=== PATIENT | male | born 1945 | race Asian ===

== ENCOUNTER 2017-08-20 10:46 | Emergency (ER) | payer OTHER ==
[2017-08-20 10:53] VITALS: BP 144/88; PULSE 62; TEMP 97.8; BMI 21.6
[2017-08-20 11:39] LABS: BASOPHIL 0.6 % (0-2.0); EOSINOPHIL 1.8 % (0-4.5); MCH 29.7 pg (25.7-33.7); MCHC 33.4 g/dl (32.0-35.9); MEAN PLT VOLUME 8.5 fl (7.5-11.1); NEUTROPHILS 72.3 % (42.8-82.8); PLATELET COUNT 238 K/MM3 (134-434); RDW 13.6 % (11.9-15.9); WHITE BLOOD COUNT 9.7 K/mm3 (4.0-10.0)
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
[2017-08-20 12:05] LABS: URINE APPEARANCE CLEAR; URINE BILIRUBIN NEGATIVE (NEGATIVE); URINE BLOOD 1+ (NEGATIVE); URINE COLOR LTYELLOW; URINE GLUCOSE (UA) 1+ (NEGATIVE); URINE KETONE NEGATIVE (NEGATIVE); URINE NITRITE NEGATIVE (NEGATIVE); URINE PROTEIN NEGATIVE (NEGATIVE); URINE UROBILINOGEN NEGATIVE mg/dL (0.2-1.0)
[2017-08-20 12:08] LABS: ALBUMIN 4.5 g/dl (3.4-5.0); ANION GAP 7 (8-16); BILIRUBIN,TOTAL 0.6 mg/dL (0.2-1.0); CALCIUM 9.4 mg/dL (8.5-10.1); CO2 28 mmol/L (21-32); CREATININE 0.9 mg/dL (0.7-1.3); GLUCOSE,RANDOM 176 mg/dL (74-106); SGOT/AST 20 U/L (15-37); SGPT/ALT 28 U/L (12-78); TOT PROT 8.6 g/dl (6.4-8.2)
[2017-08-20 12:10] LABS: ALK PHOS 52 U/L (45-117); CPK 290 IU/L (39-308); TROPONIN I < 0.02 ng/ml (0.00-0.05)
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
[2017-08-20 12:33] LABS: INR 1.42 (0.82-1.09)
--- NOTE | 2017-08-20 12:54 | EKG ---
Test Reason : Blood Pressure : / mmHG Vent. Rate : 064 BPM Atrial Rate : 064 BPM P-R Int : 176 ms QRS Dur : 088 ms QT Int : 412 ms P-R-T Axes : 053 -12 010 degrees QTc Int : 425 ms SINUS RHYTHM WITH FREQUENT PREMATURE VENTRICULAR COMPLEXES IN A PATTERN OF BIGEMINY POSSIBLE LEFT ATRIAL ENLARGEMENT POOR R WAVE PROGRESSION ABNORMAL ECG WHEN COMPARED WITH ECG OF 27-DEC-2015 11:05, NO SIGNIFICANT CHANGE WAS FOUND CLINICAL CORRELATION IS RECOMMENDED Confirmed by MATT YEUNG, FAREED ([id number]) on 08/20/2017 12:54:15 PM Referred By: Confirmed By:FAREED GUTIERREZ MD
[2017-08-20 13:54] LABS: URINE MUCUS RARE; URINE RBC 1 /hpf (0-3); URINE WBC 3 /hpf (3-5)
[2017-08-20 18:15] LABS: URINE LEUK ESTERASE Negative (NEGATIVE)
== END 2017-08-20 17:22 | disposition home or self-care (01) ==
LOC: JER 10:46
DX: S06.0X0A Concussion without loss of consciousness, initial encounter (principal); S00.03XA Contusion of scalp, initial encounter; I10 Essential (primary) hypertension; E11.9 Type 2 diabetes mellitus without complications; Z79.84 Long term (current) use of oral hypoglycemic drugs; I48.91 Unspecified atrial fibrillation; Z79.82 Long term (current) use of aspirin; W03.XXXA Other fall on same level due to collision with another person, initial encounter; Y93.89 Activity, other specified; Y92.480 Sidewalk as the place of occurrence of the external cause
CPT/HCPCS: 36415; 70450-TC; 71020-TC; 80053; 81003; 81015; 82550; 82553; 84484; 85025; 85610; 85730; 93005; 93010; 99283-25

== ENCOUNTER 2018-03-11 11:37 | Observation (INO) | payer OTHER ==
[2018-03-11 12:31] LABS: BASO % 1.2 % (0-2.0); EOS % 3.3 % (0-4.5); HEMOGLOBIN 13.4 GM/dL (11.7-16.9); LYMPH % 29.5 % (8-40); MCH 30.7 pg (25.7-33.7); MCHC 34.4 g/dl (32.0-35.9); MEAN CELL VOLUME 89.3 fl (80-96); MEAN PLT VOLUME 8.6 fl (7.5-11.1); PLATELET COUNT 200 K/MM3 (134-434); RBC 4.37 M/mm3 (4.00-5.60); RDW 13.4 % (11.9-15.9); WHITE BLOOD COUNT 9.8 K/mm3 (4.0-10.0)
[2018-03-11 12:43] LABS: INR 1.51 (0.82-1.09); PROTHROMBIN TIME (PATIENT) 17.1 SEC (9.7-13.0)
[2018-03-11 12:45] LABS: ACTIVATED PTT 34.1 SECONDS (26.9-34.4)
--- NOTE | 2018-03-11 12:46 | PDOC ---
History of Present Illness <Alexia Narayanan - Last Filed: 03/11/18 16:41> - History of Present Illness Initial Comments: 03/11/18 13:40 The patient is a 73 year old male with past medical history of hypertension, diabetes, atrial fibrillation (on aspirin), bladder cancer (currently undergoing BCG therapy), prostatic hyperplasia, CAD, [place] s/p stents who presents to the ED with complaints of chest heaviness, shortness of breath, and lightheadedness since yesterday. He describes his chest pain as a heaviness in the middle of his chest and a heaviness in his head as well. He reports lightheadedness with change in position and shortness of breath at rest and worse with exertion. He denies any associated nausea, vomiting, diarrhea, diaphoresis, or focal neurological deficits. He reports his symptoms are different than from the time he had stent placement in that he is more SOB now. The patient reports he is taking all of his medications. He did not take baby aspirin this morning as he takes it in the evening. He denies any fevers or chills. <Noemy Gunter - Last Filed: 03/11/18 16:45> - General Chief Complaint: Shortness of Breath Stated Complaint: SOB Time Seen by Provider: 03/11/18 11:47 Past History <Alexia Narayanan - Last Filed: 03/11/18 16:41> - Past Medical History Cancer: Yes (BLADDER) Cardiac Disorders: Yes (cad, [place] X2) COPD: No Diabetes: Yes HTN: Yes Hypercholesterolemia: Yes - Surgical History Cardiac Surgery: No - Immunization History Immunization Up to Date: Yes - Suicide/Smoking/Psychosocial Hx Smoking History: Never smoked Have you smoked in the past 12 months: No Information on smoking cessation initiated: No Hx Alcohol Use: No Drug/Substance Use Hx: No Substance Use Type: None <Noemy Gunter - Last Filed: 03/11/18 16:45> - Past Medical History Allergies/Adverse Reactions: Allergies Allergy/AdvReac Type Severity Reaction Status Date / Time No Known Allergies Allergy Verified 03/11/18 11:38 Home Medications: Ambulatory Orders Aspirin [ASA -] 81 mg PO DAILY 06/13/15 Metoprolol Succinate [Toprol XL -] 50 mg PO DAILY #30 tab.sr.24h 06/18/15 Valsartan [Diovan] 320 mg PO DAILY #30 tablet 06/18/15 Isosorbide Mononitrate 30 mg PO DAILY 12/27/15 Alfuzosin HCl [Alfuzosin HCl ER] 10 mg PO DAILY 08/20/17 Amlodipine Besylate [Norvasc -] 2.5 mg PO DAILY 08/20/17 Metformin HCl [Glucophage] 500 mg PO DAILY 08/20/17 Tamsulosin HCl [Flomax] 0.4 mg PO DAILY 08/20/17 Review of Systems - Review of Systems Comments:: 03/11/18 13:40 GENERAL/CONSTITUTIONAL: No fever or chills. No weakness. HEAD, EYES, EARS, NOSE AND THROAT: No change in vision. No ear pain or discharge. No sore throat. GASTROINTESTINAL: No nausea, vomiting, diarrhea or constipation. GENITOURINARY: No dysuria, frequency, or change in urination. CARDIOVASCULAR:(+) chest pain and shortness of breath. RESPIRATORY: No cough, wheezing, or hemoptysis. MUSCULOSKELETAL: No joint or muscle swelling or pain. No neck or back pain. SKIN: No rash NEUROLOGIC: (+) lightheadedness, headache. No vertigo, loss of consciousness, or change in strength/sensation. ENDOCRINE: No increased thirst. No abnormal weight change. HEMATOLOGIC/LYMPHATIC: No anemia, easy bleeding, or history of blood clots. ALLERGIC/IMMUNOLOGIC: No hives or skin allergy <Noemy Gunter - Last Filed: 03/11/18 16:45> *Physical Exam - Vital Signs Last Vital Signs Temp Pulse Resp BP Pulse Ox 98.4 F 62 18 153/93 100 03/11/18 11:39 03/11/18 11:39 03/11/18 11:39 03/11/18 11:39 03/11/18 11:39 <Alexia Narayanan - Last Filed: 03/11/18 16:41> - Vital Signs Last Vital Signs Temp Pulse Resp BP Pulse Ox 98.4 F 62 18 153/93 100 03/11/18 11:39 03/11/18 11:39 03/11/18 11:39 03/11/18 11:39 03/11/18 11:39 - Physical Exam Comments: 03/11/18 13:16 GENERAL: Awake, alert, and fully oriented, in no acute distress HEAD: No signs of trauma EYES: PERRLA, EOMI, sclera anicteric, conjunctiva clear ENT: Auricles normal inspection, hearing grossly normal, nares patent, oropharynx clear without exudates. Moist mucosa NECK: Normal ROM, supple, no lymphadenopathy, JVD, or masses LUNGS: Breath sounds equal, clear to auscultation bilaterally. No wheezes, and no crackles HEART: mostly regular rate with frequent PVCs, normal S1 and S2, no murmurs, rubs or gallops ABDOMEN: Soft, nontender, normoactive bowel sounds. No guarding, no rebound. No masses EXTREMITIES: Normal range of motion, no edema. No clubbing or cyanosis. No cords, erythema, or tenderness NEUROLOGICAL: Normal speech, cranial nerves intact, negative pronator drift, 5/ 5 strength in all 4 extremities, normal sensation to light touch in all 4 extremities, normal cerebellar exam, normal gait, normal reflexes and tone SKIN: Warm, Dry, normal turgor, no rashes or lesions noted. <Noemy Gunter - Last Filed: 03/11/18 16:45> Heart Score/ECG Review - History History: Moderately suspicious - Electrocardiogram EKG: Non specific repolarization disturbance - Age Age: >/= 65 - Risk Factors Based on the list above the patient has:: 1-2 risk factors - Troponin Troponin: </= normal limit - Score Heart Score - Total: 5 - [place] Comment: 03/11/18 13:22 Sinus rhythm, rate 68. Frequent PVCs and bigeminy pattern. Normal axis. No ST elevations. When compared to EKG from July 2017 no significant change. <Noemy Gunter - Last Filed: 03/11/18 16:45> ED Treatment Course - LABORATORY CBC & Chemistry Diagram: 03/11/18 12:00 03/11/18 12:00 - ADDITIONAL ORDERS Additional order review: Laboratory Results 03/11/18 03/11/18 12:00 12:00 PT with INR 17.10 H INR 1.51 H PTT (Actin FS) 34.1 Sodium 136 Potassium 4.4 Chloride 103 Carbon Dioxide 24 Anion Gap 9 BUN 12 D Creatinine 0.8 Creat Clearance w eGFR > 60 Random Glucose 161 H Calcium 8.5 Magnesium 1.9 Total Bilirubin 0.4 D AST 20 ALT 28 Alkaline Phosphatase 47 Troponin I < 0.02 B-Natriuretic Peptide 198.16 H Total Protein 7.3 Albumin 3.8 03/11/18 12:00 RBC 4.37 MCV 89.3 MCHC 34.4 RDW 13.4 MPV 8.6 Neutrophils % 55.0 D Lymphocytes % 29.5 D Monocytes % 11.0 H Eosinophils % 3.3 D Basophils % 1.2 - RADIOLOGY Radiograph Interpretation: 03/11/18 13:28 Chest X-ray as reviewed by Dr. Corona reports no acute pathology. 03/11/18 15:[address] as reviewed by Dr. Cardozo reports no acute pathology, right parietal scalp hematoma. <Alexia Narayanan - Last Filed: 03/11/18 16:41> - LABORATORY CBC & Chemistry Diagram: 03/11/18 12:00 03/11/18 12:00 - ADDITIONAL ORDERS Additional order review: 03/11/18 12:00 RBC 4.37 MCV 89.3 MCHC 34.4 RDW 13.4 MPV 8.6 Neutrophils % 55.0 D Lymphocytes % 29.5 D Monocytes % 11.0 H Eosinophils % 3.3 D Basophils % 1.2 - RADIOLOGY Radiology Studies Ordered: Category Date Time Status CHEST X-RAY PORTABLE* [RAD] Stat Radiology 03/11/18 11:57 Completed <Noemy Gunter - Last Filed: 03/11/18 16:45> Medical Decision Making - Medical Decision Making 03/11/18 15:25 Phone call placed to CT techs in order to facilitate patient's CT. 03/11/18 16:38 Microblog sent to [facility]. Call returned promptly and case discussed. <Alexia Narayanan - Last Filed: 03/11/18 16:41> - Medical Decision Making 03/11/18 13:25 73-year-old male with a history of coronary artery disease, bladder cancer on BCG immunetherapy presents to the ED with 24hrs of chest heaviness, SOB, headache, generalized weakness. Vitals wnl, exam wnl. EKG with sinus rhythm with bigeminy. DDx includes ACS vs PE vs MSK pain. Will obtain CTH given active malignancy and headache. Pt will need admission given high risk CP. 03/11/18 16:42 Labs, CTA, CTH neg Pt given ASA [address] Wallace who accepts pt to tele obs Case discussed in detail with admitting physician including history, physical exam and ancillary studies. Admitting physician has assumed care for the patient, will follow all pending diagnostics and will complete the evaluation and treatment. <Noemy Gunter - Last Filed: 03/11/18 16:45> *DC/Admit/Observation/Transfer - Attestations Scribe Attestion: 03/11/18 13:29 Documentation prepared by Alexia Narayanan, acting as medical records clerk for Noemy Gunter MD. <Alexia Narayanan - Last Filed: 03/11/18 16:41> - Discharge Dispostion Decision to Admit order: Yes - Attestations Physician Attestion: 03/11/18 16:45 I, Dr. Noemy Gunter MD, attest that this document has been prepared under my direction and personally reviewed by me in its entirety. I further attest, that it accurately reflects all work, treatment, procedures and medical decision -making performed by me. <Noemy Gunter - Last Filed: 03/11/18 16:45> Diagnosis at time of Disposition: Chest pain - Discharge Dispostion Condition at time of disposition: Stable - Referrals Referrals: Shakir Coyne MD [Primary Care Provider] -
[2018-03-11 13:06] LABS: ALBUMIN 3.8 g/dl (3.4-5.0); ANION GAP 9 (8-16); BILIRUBIN,TOTAL 0.4 mg/dL (0.2-1.0); BLOOD UREA NITROGEN 12 mg/dL (7-18); CALCIUM 8.5 mg/dL (8.5-10.1); CHLORIDE 103 mmol/L (98-107); CO2 24 mmol/L (21-32); CREATININE 0.8 mg/dL (0.7-1.3); GLUCOSE,RANDOM 161 mg/dL (74-106); MAGNESIUM 1.9 mg/dL (1.8-2.4); POTASSIUM 4.4 mmol/L (3.5-5.1); SGOT/AST 20 U/L (15-37); SGPT/ALT 28 U/L (12-78); SODIUM 136 mmol/L (136-145); TOT PROT 7.3 g/dl (6.4-8.2)
[2018-03-11 13:09] LABS: ALK PHOS 47 U/L (45-117); N-TERMINAL BNP 198.16 pg/ml (5-125)
[2018-03-11] MEDS ORDERED: ASPIRIN 325 MG TABLET PO ONE (16:35)
[2018-03-11] MEDS ORDERED: ASPIRIN 325 MG TABLET ONE (16:39)
--- NOTE | 2018-03-11 17:45 | PN ---
Teaching Attending Note Name of Resident: Simone Bonilla ATTENDING PHYSICIAN STATEMENT I saw and evaluated the patient. I reviewed the resident's note and discussed the case with the resident. I agree with the resident's findings and plan as documented with exceptions below. SUBJECTIVE: 73 yom with PMHx of CAD (?PCI), ?Afib, HTN, NIDDM, ?HLD, bladder ca undergoing BCG therapy currently was in his USOH till last night when had sudden onset of chest pressure with inability to breath lasting about 6 hours, resolved after receiving oxygen in the ED. Denies any prior similar symptoms. ADLs limited by exertional dyspnea, climbing or walking short distances. Currently asymptomatic in bed. Unclear h/o fall, reports was a year ago but per ED physician, he reported that had a headache then, which he currently denies. No ongoing hematuria. 12 point ROS done, neg otherwise. OBJECTIVE: Vital Signs Period Temp Pulse Resp BP Sys/Maharaj Pulse Ox Last 24 Hr 98.4 F 62 18 153/93 100 Intake & Output 03/08/18 03/09/18 03/10/18 03/11/18 23:59 23:59 23:59 23:59 Weight 130 lb GENERAL: Awake, alert, and fully oriented, in no acute distress. HEAD: Normal with no signs of trauma. EYES: Pupils equal, round and reactive to light, extraocular movements intact, sclera anicteric, conjunctiva clear. No lid lag. EARS, NOSE, THROAT: Ears normal, nares patent, oropharynx clear without exudates. Moist mucous membranes. NECK: soft, supple, no JVD LUNGS: Breath sounds equal, clear to auscultation bilaterally. No wheezes, and no crackles. No accessory muscle use. HEART: S1S2 regular ABDOMEN: Soft, nontender, not distended, normoactive bowel sounds, no guarding, no rebound, no masses. MUSCULOSKELETAL: Normal range of motion at all joints. No bony deformities or tenderness. No CVA tenderness. UPPER EXTREMITIES: 2+ pulses, warm, well-perfused. No cyanosis. No clubbing. No peripheral edema. LOWER EXTREMITIES: 2+ pulses, warm, well-perfused. No calf tenderness. No peripheral edema. NEUROLOGICAL: Cranial nerves II-XII grossly intact. Normal speech. PSYCHIATRIC: Cooperative. Good eye contact. Appropriate mood and affect. SKIN: Warm, dry, normal turgor, no rashes or lesions noted Home Medication List Medication Instructions Recorded Confirmed Type Aspirin [ASA -] 81 mg PO DAILY 06/13/15 08/20/17 History Isosorbide Mononitrate 30 mg PO DAILY 12/27/15 08/20/17 History Alfuzosin HCl [Alfuzosin HCl ER] 10 mg PO DAILY 08/20/17 08/20/17 History Amlodipine Besylate [Norvasc -] 2.5 mg PO DAILY 08/20/17 08/20/17 History Metformin HCl [Glucophage] 500 mg PO DAILY 08/20/17 08/20/17 History Tamsulosin HCl [Flomax] 0.4 mg PO DAILY 08/20/17 08/20/17 History Laboratory Results - last 24 hr 03/11/18 03/11/18 03/11/18 12:00 12:00 12:00 WBC 9.8 RBC 4.37 Hgb 13.4 Hct 39.0 MCV 89.3 MCH 30.7 MCHC 34.4 RDW 13.4 Plt Count 200 MPV 8.6 Neutrophils % 55.0 D Lymphocytes % 29.5 D Monocytes % 11.0 H Eosinophils % 3.3 D Basophils % 1.2 PT with INR 17.10 H INR 1.51 H PTT (Actin FS) 34.1 Sodium 136 Potassium 4.4 Chloride 103 Carbon Dioxide 24 Anion Gap 9 BUN 12 D Creatinine 0.8 Creat Clearance w eGFR > 60 Random Glucose 161 H Calcium 8.5 Magnesium 1.9 Total Bilirubin 0.4 D AST 20 ALT 28 Alkaline Phosphatase 47 Troponin I < 0.02 B-Natriuretic Peptide 198.16 H Total Protein 7.3 Albumin 3.8 EKG 1 Ventricular bigeminy. EKG 2 QS with T inversion in V1-V2 /septal infarct (present in V1, difficult to assess in prior V2 given superimpostion of PVC) CTA - neg for acute process CT brain - right scalp parietal hematoma ASSESSMENT AND PLAN: 73 yom with CAD, ?Afib, bladder Ca, NIDDM, HLD, admitted with chest pressure/ dyspnea. -Chest pressure/dyspnea, r/o ACS. CTA neg for PE -Right scalp parietal hematoma s/p ?Fall -HTN -NIDDM -?HLD -CAD s/p ?PCI -?Afib PLan: Admit to telemetry, cycle CE, ASA 81 mg daily. Continue Toprol, Check lipid panel. Check 2D Echo, cardiology consult. Cardiology consult with Dr. Farrell. Stress test per him Hold metformin. ISS, diabetic diet. Continue ARB. Flomax. DVTPPx with heparin with close monitoring Admit to obs, Plan discussed with patient in detail and all questions answered. Total time spent 55 min.
--- NOTE | 2018-03-11 18:27 | HP ---
CHIEF COMPLAINT: Chest Pressure PCP: [facility] Card[facility]: Bud HISTORY OF PRESENT ILLNESS: Pt is a 73 y/o M with PMH HTN, DM, ?AF (on ASA), Bladder CA (completed 1 yr BCG now q3mo), BPH, CAD, VT (pt states cath in with NO stents) who presents to ED with chest pressure and SOB for 6hr. Symptoms began in the middle of the night, but pt states they did not wake him from sleep as he wakes many times during the night typically. Pressure was simultaneously sub-sternal and affecting the head, nonradiating, and associated with SOB. Pt denies feeling anxious, n/v/d, sweating. He states he has had cardiac symptoms in the past and this sensation was clearly different. Pt is no longer having symptoms. Pt states he used to take a medicine for cholesterol but has not been taking it because he is afraid it will damage his liver. He states his last stress test was 2 years ago and was ok. He denies any blood in the urine or other bleeding. ER course was notable for: (1) HTN, INR 1.51, BNP 194, Trop neg x 1 (2) CXR negative, Chest CTA neg for PE, Head CT significant for R parietal superficial hematoma (3) full dose ASA. Recent Travel: denies PAST MEDICAL HISTORY: HTN, DM, ?AF (on ASA), Bladder CA (completed 1 yr BCG now q3mo), BPH, CAD, VT ( pt states cath in with NO stents) PAST SURGICAL HISTORY: denies Social History: Smoking: denies Alcohol: denies Drugs: denies Family History: CAD in old age Allergies No Known Allergies Allergy (Verified 03/11/18 11:38) HOME MEDICATIONS: Home Medications Medication Instructions Recorded Aspirin [ASA -] 81 mg PO DAILY 06/13/15 Metoprolol Succinate [Toprol XL -] 50 mg PO DAILY #30 tab.sr.24h 06/18/15 Valsartan [Diovan] 320 mg PO DAILY #30 tablet 06/18/15 Isosorbide Mononitrate 30 mg PO DAILY 12/27/15 Alfuzosin HCl [Alfuzosin HCl ER] 10 mg PO DAILY 08/20/17 Amlodipine Besylate [Norvasc -] 2.5 mg PO DAILY 08/20/17 Metformin HCl [Glucophage] 500 mg PO DAILY 08/20/17 Tamsulosin HCl [Flomax] 0.4 mg PO DAILY 08/20/17 REVIEW OF SYSTEMS CONSTITUTIONAL: Absent: fever, chills, diaphoresis, generalized weakness, malaise, loss of appetite, weight change HEENT: head pressure Absent: rhinorrhea, nasal congestion, throat pain, throat swelling, difficulty swallowing, mouth swelling, ear pain, eye pain, visual changes CARDIOVASCULAR: chest pressure Absent: , syncope, palpitations, irregular heart rate, lightheadedness, peripheral edema RESPIRATORY: shortness of breath Absent: cough, , dyspnea with exertion, orthopnea, wheezing, stridor, hemoptysis GASTROINTESTINAL: Absent: abdominal pain, abdominal distension, nausea, vomiting, diarrhea, constipation, melena, hematochezia GENITOURINARY: Absent: dysuria, frequency, urgency, hesitancy, hematuria, flank pain, genital pain MUSCULOSKELETAL: Absent: myalgia, arthralgia, joint swelling, back pain, neck pain SKIN: Absent: rash, itching, pallor HEMATOLOGIC/IMMUNOLOGIC: Absent: easy bleeding, easy bruising, lymphadenopathy, frequent infections ENDOCRINE: Absent: unexplained weight gain, unexplained weight loss, heat intolerance, cold intolerance NEUROLOGIC: Absent: headache, focal weakness or paresthesias, dizziness, unsteady gait, seizure, mental status changes, bladder or bowel incontinence PSYCHIATRIC: Absent: anxiety, depression, suicidal or homicidal ideation, hallucinations. PHYSICAL EXAMINATION Vital Signs - 24 hr 03/11/18 11:39 Temperature 98.4 F Pulse Rate 62 Respiratory 18 Rate Blood Pressure 153/93 O2 Sat by Pulse 100 Oximetry (%) GENERAL: Awake, alert, and fully oriented, in no acute distress. HEAD: Normal with no signs of trauma. EYES: extraocular movements intact, sclera anicteric, conjunctiva clear. No lid lag. EARS, NOSE, THROAT: nares patent, oropharynx clear without exudates. Moist mucous membranes. NECK: Normal range of motion, supple without lymphadenopathy, JVD, or masses. No bruits LUNGS: Breath sounds equal, clear to auscultation bilaterally. No wheezes, and no crackles. No accessory muscle use. HEART: Regular rate and rhythm, normal S1 and S2 without murmur, rub or gallop. No extrasystoles appreciated ABDOMEN: Soft, nontender, not distended, normoactive bowel sounds, no guarding, no rebound, no masses. No hepatomegaly or splenomegaly. MUSCULOSKELETAL: Normal range of motion at all joints. No bony deformities or tenderness. No CVA tenderness. UPPER EXTREMITIES: 2+ pulses, warm, well-perfused. No cyanosis. No clubbing. No peripheral edema. LOWER EXTREMITIES: 2+ pulses, warm, well-perfused. No calf tenderness. No peripheral edema. NEUROLOGICAL: Cranial nerves II-XII intact. Normal speech. PSYCHIATRIC: Cooperative. Good eye contact. Appropriate mood and affect. SKIN: Warm, dry, normal turgor, no rashes or lesions noted, normal capillary refill. Laboratory Results - last 24 hr 03/11/18 03/11/18 03/11/18 12:00 12:00 12:00 WBC 9.8 RBC 4.37 Hgb 13.4 Hct 39.0 MCV 89.3 MCH 30.7 MCHC 34.4 RDW 13.4 Plt Count 200 MPV 8.6 Neutrophils % 55.0 D Lymphocytes % 29.5 D Monocytes % 11.0 H Eosinophils % 3.3 D Basophils % 1.2 PT with INR 17.10 H INR 1.51 H PTT (Actin FS) 34.1 Sodium 136 Potassium 4.4 Chloride 103 Carbon Dioxide 24 Anion Gap 9 BUN 12 D Creatinine 0.8 Creat Clearance w eGFR > 60 Random Glucose 161 H Calcium 8.5 Magnesium 1.9 Total Bilirubin 0.4 D AST 20 ALT 28 Alkaline Phosphatase 47 Troponin I < 0.02 B-Natriuretic Peptide 198.16 H Total Protein 7.3 Albumin 3.8 ASSESSMENT/PLAN: This is a pleasant 73 y/o M with PMH significant for arrhythmia and CAD who presented to the ED with complaint of chest and head pressure with SOB. Pt is admitted to tele/obs for evaluation and treatment of possible ACS. #ACS workup -ASA in ED -EKG signifcant for Q waves in V1, V2 (old) and TWI in V1, V2 (? new) -repeat Trop -c/w home meds: ASA 81, toprol, valsartan, isosorbide, alfluzosin, norvasc, flomax -Metformin held in case pt will need CT with contrast #INR -isolated INR of 1.5 -unclear etiology #DM -A1C -BGM ACHS -Novolog ISS -hold Metformin #? Afib -History of ventricular bigemini -No recorded AFib on EKG in records here -Pt not on anticoagulation at home #Bladder CA -completed 1 year BCG -now receiving q 3 mo #BPH -c/w Flomax #FEN -not on fluids -lytes wnl. Will give Mg to keep above 2 -cardiac diet #PPx -Hep Sub Q #Dispo -Obs Tele for ACS r/o Note: Meds reconciled with the patient. Simone Bonilla MD PGY-1 IM Visit type - Emergency Visit Emergency Visit: Yes ED Registration Date: 03/11/18 Care time: The patient presented to the Emergency Department on the above date and was hospitalized for further evaluation of their emergent condition. - New Patient This patient is new to me today: Yes Date on this admission: 03/13/18 - Critical Care Critical Care patient: No Hospitalist Screening - Colonoscopy Questionnaire Colonoscopy Questionnaire: Colonoscopy Questionnaire - Patient: 50 - 75 years old and never had a screening colonoscopy: Yes History of colon or rectal polyps, or CA: No History of IBD, Crohn's disease or UC: No History of abdominal radiation therapy as a child: No - Relative: 1 with colon or rectal CA, or polyps at age 60 or younger: No Colon or rectal CA diagnosed at age 45 or younger: No Multiple relatives with colon or rectal CA: No - Outcome: Screening Result: Positive Screen
[2018-03-11] MEDS ORDERED: INSULIN SLIDING SCALE (NOVOLOG) 1 VIAL SQ SCH (22:00)
[2018-03-11] MEDS ORDERED: amLODIPine BESYLATE 5 MG TABLET (FP) PO ONE (22:11)
[2018-03-11] MEDS: INSULIN SLIDING SCALE (NOVOLOG) 1 VIAL SQ SCH (22:47)
[2018-03-11] MEDS: HEPARIN NA (PORCINE) 5,000 UNITS/ML 1ML VIAL SQ SCH (22:47)
[2018-03-12 00:24] VITALS: BMI 22.4
[2018-03-12] MEDS: HEPARIN NA (PORCINE) 5,000 UNITS/ML 1ML VIAL SQ SCH ×3 (06:18→21:42)
[2018-03-12] MEDS: INSULIN SLIDING SCALE (NOVOLOG) 1 VIAL SQ SCH ×4 (06:29→21:45)
[2018-03-12 07:39] LABS: EOS % 3.7 % (0-4.5); HEMATOCRIT 40.8 % (35.4-49); HEMOGLOBIN 14.3 GM/dL (11.7-16.9); LYMPH % 35.3 % (8-40); MCH 31.3 pg (25.7-33.7); MCHC 35.1 g/dl (32.0-35.9); MEAN CELL VOLUME 89.4 fl (80-96); MEAN PLT VOLUME 8.3 fl (7.5-11.1); MONO % 10.5 % (3.8-10.2); NEUT % 49.5 % (42.8-82.8); PLATELET COUNT 209 K/MM3 (134-434); RBC 4.56 M/mm3 (4.00-5.60); RDW 13.8 % (11.9-15.9); WHITE BLOOD COUNT 8.4 K/mm3 (4.0-10.0)
[2018-03-12 07:47] LABS: CHLORIDE 105 mmol/L (98-107); POTASSIUM 4.3 mmol/L (3.5-5.1); SODIUM 140 mmol/L (136-145)
[2018-03-12 07:59] LABS: INR 1.5 (0.82-1.09)
[2018-03-12 08:03] LABS: ALBUMIN 3.8 g/dl (3.4-5.0); ALK PHOS 50 U/L (45-117); ANION GAP 9 (8-16); BILIRUBIN,TOTAL 0.5 mg/dL (0.2-1.0); BLOOD UREA NITROGEN 14 mg/dL (7-18); CALCIUM 8.8 mg/dL (8.5-10.1); CHOLESTEROL 142 mg/dL (50-200); CO2 26 mmol/L (21-32); CREATININE 0.8 mg/dL (0.7-1.3); GLUCOSE,RANDOM 107 mg/dL (74-106); HDL CHOLESTEROL 36 mg/dL (40-60); MAGNESIUM 2.2 mg/dL (1.8-2.4); PHOSPHOROUS 3.5 mg/dL (2.5-4.9); SGOT/AST 21 U/L (15-37); SGPT/ALT 31 U/L (12-78); TOT PROT 7.2 g/dl (6.4-8.2); TRIGLYCERIDES 181 mg/dL (35-160)
[2018-03-12] MEDS: TAMSULOSIN HCL 0.4 MG CAP.ER.24H (FP) PO SCH (08:10)
--- NOTE | 2018-03-12 09:32 | CON.CARD ---
Consult Consult Specialty:: cardio - History of Present Illness Chief Complaint: cp, sob History of Present Illness: 73 male here with cp, sob. he sees me in office, though does not comply closely with testing and f/u due to medical insurance copay concerns. last seen 08/16. he has known PVCs/ventricular bigeminy which has been present on EKGs for quite some time, with no signs of angina and no decrement in LV function. he most recently declined repeat echo and stress test at last visit. at that time, he was taking metoprolol succinate 50 bid with continued ventric bigeminy on EKG so I incr'd dose to 50 TID and rec'd f/u in 2 months--he did not return. the day of admission, pt awoke around 3am with sob. noted mild heaviness center of chest "like something sitting there". sat up but sx's persisted. noted heaviness in head as well (not dizzy or presyncope). sx's persisted for several hours that day, eventually resolved ? after arrived in hospital. cp did not radiate. he is vague historian, ? minimizes sx's. states he never had this sx before, then says "never that noticeable". denies leg swelling. states he notes exertional fatigue and sob e.g. on stairs and this has worsened since first reported it to me 08/16. no syncope PMH: h/o ME and PCTA --? details HTN HPL DM severe L/S spine dz - Alcohol/Substance Use Hx Alcohol Use: No - Smoking History Smoking history: Never smoked Have you smoked in the past 12 months: No Home Medications - Allergies Allergies/Adverse Reactions: Allergies Allergy/AdvReac Type Severity Reaction Status Date / Time No Known Allergies Allergy Verified 03/11/18 11:38 - Home Medications Home Medications: Ambulatory Orders Aspirin [ASA -] 81 mg PO DAILY 06/13/15 Metoprolol Succinate [Toprol XL -] 50 mg PO DAILY #30 tab.sr.24h 06/18/15 Valsartan [Diovan] 320 mg PO DAILY #30 tablet 06/18/15 Isosorbide Mononitrate 30 mg PO DAILY 12/27/15 Alfuzosin HCl [Alfuzosin HCl ER] 10 mg PO DAILY 08/20/17 Amlodipine Besylate [Norvasc -] 2.5 mg PO DAILY 08/20/17 Metformin HCl [Glucophage] 500 mg PO DAILY 08/20/17 Tamsulosin HCl [Flomax] 0.4 mg PO DAILY 08/20/17 Family Disease History - Family Disease History Family History: Denies (no known cmp) Review of Systems - Review of Systems Constitutional: denies: Chills, Fever Eyes: denies: Eye Pain HENT: denies: Nasal Congestion Neck: denies: Stiffness Cardiovascular: denies: Palpitations Respiratory: denies: Cough, Orthopnea, Wheezing Gastrointestinal: denies: Diarrhea, Rectal Bleeding Genitourinary: denies: Burning, Hematuria Musculoskeletal: denies: Muscle Pain Integumentary: denies: Rash Neurological: denies: Numbness, Seizure, Syncope Endocrine: denies: Excessive Sweating Hematology/Lymphatic: denies: Excessive Bleeding Vital Signs: Vital Signs Temperature 98 F 03/12/18 06:00 Pulse Rate 62 03/12/18 06:00 Respiratory Rate 18 03/12/18 06:00 Blood Pressure 169/65 03/12/18 06:00 O2 Sat by Pulse Oximetry (%) 99 03/11/18 21:00 Constitutional: Yes: Well Nourished, No Distress Eyes: No: Sclera Icterus HENT: No: Nasal Congestion Neck: No: Decreased ROM Respiratory: Yes: CTA Bilaterally. No: Accessory Muscle Use, Rales, Wheezes Gastrointestinal: Yes: Normal Bowel Sounds. No: Distention, Hepatomegaly, Palpable Mass, Tenderness Cardiovascular: Yes: Regular Rate and Rhythm JVD: No Carotid Bruit: No PMI: Non-Displaced Heart Sounds: Yes: S1, S2. No: Gallop Murmur: No: Systolic Murmur, Diastolic Murmur Musculoskeletal: Yes: Other (No kyphosis) Extremities: No: Cool, Cyanosis Edema: No Peripheral Pulses: 2+ Left Carotid, 2+ Right Carotid, 2+ Left Doralis Pedis, 2+ Right Dorsalis Pedis Integumentary: No: Jaundice Neurological: Yes: Alert, Oriented (x3) Psychiatric: No: Agitated - Other Data Labs, Other Data: CBC, BMP 03/12/18 06:36 03/12/18 06:36 INR, PTT INR 1.50 (0.82-1.09) H 03/12/18 06:36 Troponin, BNP 03/11/18 03/11/18 03/12/18 12:00 18:15 00:05 Troponin I < 0.02 < 0.02 < 0.02 B-Natriuretic Peptide 198.16 H Troponin, BNP 03/11/18 03/11/18 03/12/18 12:00 18:15 00:05 Troponin I < 0.02 < 0.02 < 0.02 B-Natriuretic Peptide 198.16 H Laboratory Tests 03/11/18 03/11/18 03/12/18 12:00 18:15 00:05 WBC Hgb Plt Count INR Sodium Potassium Carbon Dioxide BUN Creatinine Magnesium AST ALT Troponin I < 0.02 < 0.02 < 0.02 Albumin Triglycerides Cholesterol Total LDL Cholesterol HDL Cholesterol 03/12/18 03/12/18 03/12/18 06:36 06:36 06:36 WBC 8.4 Hgb 14.3 Plt Count 209 INR 1.50 H Sodium 140 Potassium 4.3 Carbon Dioxide 26 BUN 14 Creatinine 0.8 Magnesium 2.2 AST 21 ALT 31 Troponin I Albumin 3.8 Triglycerides 181 H D Cholesterol 142 Total LDL Cholesterol 89 HDL Cholesterol 36 L Assessment/Plan CTA chest: no PE, no aorta aneurysm, clear lungs/pleura ECG: NSR; LVH; ? old AWMI; PVCs--no change vs prior MPI 2015 (pers): no STs. no ischemia. nl EF. Echo 2016: nl LV/EF. no RWMAs. nl RV. nl LA. valves WNL. Holter 2016: 28K PVCs, no VT tele: NSR, freq PVCs. no VT home meds: amlodipine 2.5, ASA 81, valsartan 160, fenofibrate 145, isosorbide mono 30, metopr 50 TID, metformin 500 bid, flomax cp, sob: -has had exertional fatigue/sob for many months, gradually progressive (no active back pain seems to be present to blame for this). -awoke with sob on DOA, with assctd chest heaviness that was mild. -BNP 198, exam without JVD or edema, CXR no congestion. -no ischemic ECG changes. trop neg x3 -chronic atypical cp sx with negative MPI in past -? transient CHF, ? unstable angina, ? stress/anxiety, ? [place] (not the typical habitus for this) -rec echo and nuclear stress test to r/o serious CV pathology. pt declines nuclear stress test due to bladder cancer which he attributes to prior radiation exposures since he never smoked. i advised him of the lower sensitivity (and lower negative predictive value) of stress echo and that he would have to be willing to accept a degree of uncertainty regarding the presence or absence of potentially life-threatening CAD if we do stress echo and he verbalized understanding and preference to pursue this testing modality. i also advised him that, since he cannot exercise, we will attempt dobutamine ( already received metoprolol 75mg dose this am--will hold further doses)--pt informed if he does not reach 85% of MPHR he will have to consider angiogram for definitive dx, which has radiation exposure assctd but less than MPI. -plan for echo and dobut stress echo tomorrow. -hold metopr, nitrates until after test completed (low dose amlodipine ok--not likely to be anti-ischemic at this dose) CAD: -h/o ME with PTCA then, no details available -no ischemia 2014 -he is intolerant to statins, decliend ezetimibe due to ins coverage. -has been on fenofibrate therapy long time, this has been continued -has been on ASA with episode of hematuria previously causing temporary discontinuation. pt was advised to resume ASA 08/16 per my d/w KATHIA Ignacio) -on BB at home, also for HTN and PVC suppression--dose incr'd to metopr succ 50 TID at last visit, but he has only taken it bid he says. -f/u stress tst HTN: -bp labile during past hospital stays and when in severe back pain -was well controlled (140s) at 08/16 o.v. -suboptimal BP here -change metopr to 75 BID for better chances at compliance -observe bp trend -will incr amlodipine if remains uncontrolled frequent PVCs, ventric bigeminy: -longstanding in this pt, refractory to metopr 50 BID--dose incr'd 08/16 ? if he complied -incr metopr 75 bid, as above -check echo for LVEF (if declining, he will need amio vs mexilitene vs PVC ablation) HPL: -as above, statin intolerant. -low HDL, hi TGs--cont home fibrate -labs stable here, LDL 80s. -will start ezetimibe, ? if generic cost will be affordable on his plan now DM2 -A1c 7.3% in 2017, pt was to see dr gaming for mgmt coagulopathy: -INR 1.5 here. LFTs (incl albumin) normal -? heme eval inpatient or outpatient--per hospitalist/PMD
[2018-03-12] MEDS: ISOSORBIDE MONONITRATE 30 MG TAB.SR.24H (FP) PO SCH (09:41)
[2018-03-12] MEDS: VALSARTAN 160 MG TABLET (UD) PO SCH (09:41)
[2018-03-12] MEDS: ASPIRIN 81 MG CHEWABLE TABLETS PO SCH (09:41)
[2018-03-12] MEDS: amLODIPine BESYLATE 2.5 MG TABLET (FP) PO SCH (09:41)
[2018-03-12] MEDS: EZETIMIBE 10 MG TABLET (FP) PO SCH (09:48)
[2018-03-12] MEDS ORDERED: VALSARTAN 160 MG TABLET (UD) PO SCH (10:00)
[2018-03-12] MEDS ORDERED: PATIENT'S OWN MEDICATION (NON-FORMULARY) (Alfuzosin Hcl [Alfuzosin Hcl Er] 10 MG) PO SCH (10:00)
--- NOTE | 2018-03-12 13:25 | EKG ---
Test Reason : Blood Pressure : / mmHG Vent. Rate : 054 BPM Atrial Rate : 054 BPM P-R Int : 174 ms QRS Dur : 092 ms QT Int : 402 ms P-R-T Axes : 041 -29 002 degrees QTc Int : 381 ms SINUS BRADYCARDIA WITH OCCASIONAL PREMATURE VENTRICULAR COMPLEXES POSSIBLE LEFT ATRIAL ENLARGEMENT LEFT VENTRICULAR HYPERTROPHY CANNOT RULE OUT SEPTAL INFARCT (CITED ON OR BEFORE 11-MAR-2018) ABNORMAL ECG WHEN COMPARED WITH ECG OF 20-AUG-2017 11:36, NO SIGNIFICANT CHANGE WAS FOUND Confirmed by CARLOS YEUNG, KEITH ([id number]) on 03/12/2018 1:25:39 PM Referred By: Confirmed By:KEITH GONZALEZ MD
--- NOTE | 2018-03-12 14:19 | PN ---
Teaching Attending Note Name of Resident: Yoni Wallace SUBJECTIVE: Patient seen and examined. no further chest pain or dyspnea. asymptomatic overnight. OBJECTIVE: Vital Signs Period Temp Pulse Resp BP Sys/Maharaj Pulse Ox Last 24 Hr 97.6 F-98.2 F 60-74 17-20 143-174/65-90 99-100 Intake & Output 03/09/18 03/10/18 03/11/18 03/12/18 23:59 23:59 23:59 23:59 Intake Total 10 370 Balance 10 370 Weight 135 lb General: lying in bed in no acute distress Chest: CTAB, no rales or wheezing Abdomen:soft, NT, ND Extremities: no edema Home Medication List Medication Instructions Recorded Confirmed Type Aspirin [ASA -] 81 mg PO DAILY 06/13/15 08/20/17 History Isosorbide Mononitrate 30 mg PO DAILY 12/27/15 08/20/17 History Alfuzosin HCl [Alfuzosin HCl ER] 10 mg PO DAILY 08/20/17 08/20/17 History Amlodipine Besylate [Norvasc -] 2.5 mg PO DAILY 08/20/17 08/20/17 History Metformin HCl [Glucophage] 500 mg PO DAILY 08/20/17 08/20/17 History Tamsulosin HCl [Flomax] 0.4 mg PO DAILY 08/20/17 08/20/17 History Active Medications Generic Name Dose Route Start Last Admin Trade Name Freq PRN Reason Stop Dose Admin Amlodipine Besylate 2.5 mg 03/12/18 10:00 03/12/18 09:41 Norvasc - PO 2.5 mg DAILY ELVIN Administration Aspirin 81 mg 03/12/18 10:00 03/12/18 09:41 Asa - PO 81 mg DAILY ELVIN Administration Ezetimibe 10 mg 03/12/18 10:03/12/18 09:48 Zetia - PO 10 mg DAILY ELVIN Administration Heparin Sodium (Porcine) 5,000 unit 03/11/18 22:00 03/12/18 06:18 Heparin - SQ 5,000 unit TID ELVIN Administration Insulin Aspart 1 vial 03/11/18 22:00 03/12/18 11:36 Novolog Vial Sliding Scale - SQ Not Given ACHS [facility] Protocol Isosorbide Mononitrate 30 mg 03/12/18 10:00 03/12/18 09:41 Imdur - PO 30 mg DAILY ELVIN Administration Metoprolol Succinate 75 mg 03/12/18 10:00 03/12/18 09:41 Toprol Xl - PO 75 mg BID ELVIN Administration Tamsulosin HCl 0.4 mg 03/12/18 08:30 03/12/18 08:10 Flomax - PO 0.4 mg DAILY@0830 ELVIN Administration Valsartan 320 mg 03/12/18 10:00 03/12/18 09:41 Diovan - PO 320 mg DAILY ELVIN Administration Laboratory Results - last 24 hr 03/11/18 03/11/18 03/12/18 18:15 22:28 00:05 WBC RBC Hgb Hct MCV MCH MCHC RDW Plt Count MPV Neutrophils % Lymphocytes % Monocytes % Eosinophils % Basophils % PT with INR INR Sodium Potassium Chloride Carbon Dioxide Anion Gap BUN Creatinine Creat Clearance w eGFR POC Glucometer 114 Random Glucose Hemoglobin A1c % Calcium Phosphorus Magnesium Total Bilirubin AST ALT Alkaline Phosphatase Creatine Kinase 128 109 Troponin I < 0.02 < 0.02 Total Protein Albumin Triglycerides Cholesterol Total LDL Cholesterol HDL Cholesterol 03/12/18 03/12/18 03/12/18 06:24 06:36 06:36 WBC 8.4 RBC 4.56 Hgb 14.3 Hct 40.8 MCV 89.4 MCH 31.3 MCHC 35.1 RDW 13.8 Plt Count 209 MPV 8.3 Neutrophils % 49.5 Lymphocytes % 35.3 Monocytes % 10.5 H Eosinophils % 3.7 Basophils % 1.0 PT with INR 17.00 H INR 1.50 H Sodium Potassium Chloride Carbon Dioxide Anion Gap BUN Creatinine Creat Clearance w eGFR POC Glucometer 113 Random Glucose Hemoglobin A1c % Calcium Phosphorus Magnesium Total Bilirubin AST ALT Alkaline Phosphatase Creatine Kinase Troponin I Total Protein Albumin Triglycerides Cholesterol Total LDL Cholesterol HDL Cholesterol 03/12/18 03/12/18 03/12/18 06:36 06:36 11:31 WBC RBC Hgb Hct MCV MCH MCHC RDW Plt Count MPV Neutrophils % Lymphocytes % Monocytes % Eosinophils % Basophils % PT with INR INR Sodium 140 Potassium 4.3 Chloride 105 Carbon Dioxide 26 Anion Gap 9 BUN 14 Creatinine 0.8 Creat Clearance w eGFR > 60 POC Glucometer 111 Random Glucose 107 H D Hemoglobin A1c % 7.0 H D Calcium 8.8 Phosphorus 3.5 Magnesium 2.2 Total Bilirubin 0.5 D AST 21 ALT 31 Alkaline Phosphatase 50 Creatine Kinase Troponin I Total Protein 7.2 Albumin 3.8 Triglycerides 181 H D Cholesterol 142 Total LDL Cholesterol 89 HDL Cholesterol 36 L ASSESSMENT AND PLAN: 73 yom with CAD, ?Afib, bladder Ca, NIDDM, HLD, admitted with chest pressure/ dyspnea. -Chest pressure/dyspnea, r/o ACS. CTA neg for PE -Right scalp parietal hematoma s/p ?Fall -HTN -NIDDM -Hypertriglyceridemia -CAD s/p ?PCI -?Afib PLan: ACS ruled out, no events on tele. ASA 81 mg daily. Cardiology input appreciated. For Echo/Stress echo tomorrow. HOld nitrates/Beta kirby for stress. Continue Toprol, Check lipid panel. Hold metformin. ISS, diabetic diet. Continue ARB. Flomax. DVTPPx with heparin with close monitoring Dispo planning in 24 hours pending cardiac work up. Plan discussed with patient in detail, all questions answered.
[2018-03-12] MEDS ORDERED: INSULIN (NOVOLOG) ASPART 100 UNITS/ML 10ML VIAL ONE (20:39)
--- NOTE | 2018-03-12 21:44 | EKG ---
Test Reason : Blood Pressure : / mmHG Vent. Rate : 068 BPM Atrial Rate : 068 BPM P-R Int : 172 ms QRS Dur : 088 ms QT Int : 388 ms P-R-T Axes : 058 -21 016 degrees QTc Int : 412 ms SINUS RHYTHM WITH FREQUENT PREMATURE VENTRICULAR COMPLEXES IN A PATTERN OF BIGEMINY POSSIBLE LEFT ATRIAL ENLARGEMENT SEPTAL INFARCT (CITED ON OR BEFORE 11-MAR-2018) ABNORMAL ECG WHEN COMPARED WITH ECG OF 20-AUG-2017 11:36, NO SIGNIFICANT CHANGE WAS FOUND Confirmed by CARLOS YEUNG, KEITH ([id number]) on 03/12/2018 9:44:34 PM Referred By: Confirmed By:KEITH GONZALEZ MD
[2018-03-13] MEDS: HEPARIN NA (PORCINE) 5,000 UNITS/ML 1ML VIAL SQ SCH ×3 (06:46→22:17)
[2018-03-13] MEDS: INSULIN SLIDING SCALE (NOVOLOG) 1 VIAL SQ SCH ×4 (06:48→22:16)
--- NOTE | 2018-03-13 08:36 | PN ---
Teaching Attending Note Name of Resident: Simone Bonilla ATTENDING PHYSICIAN STATEMENT I saw and evaluated the patient. I reviewed the resident's note and discussed the case with the resident. I agree with the resident's findings and plan as documented with exceptions below. SUBJECTIVE: Patient seen and examined. No chest pain or dyspnea. Asymptomatic overnight. OBJECTIVE: Vital Signs Period Temp Pulse Resp BP Sys/Maharaj Pulse Ox Last 24 Hr 97.6 F-98.2 F 59-65 16-20 120-151/48-82 96-99 Intake & Output 03/10/18 03/11/18 03/12/18 03/13/18 23:59 23:59 23:59 23:59 Intake Total 10 1230 0 Balance 10 1230 0 Weight 135 lb General: lying in bed in no acute distress Chest: CTAB, no rales or wheezing Extremities: no edema Home Medication List Medication Instructions Recorded Confirmed Type Aspirin [ASA -] 81 mg PO DAILY 06/13/15 08/20/17 History Isosorbide Mononitrate 30 mg PO DAILY 12/27/15 08/20/17 History Alfuzosin HCl [Alfuzosin HCl ER] 10 mg PO DAILY 08/20/17 08/20/17 History Amlodipine Besylate [Norvasc -] 2.5 mg PO DAILY 08/20/17 08/20/17 History Metformin HCl [Glucophage] 500 mg PO DAILY 08/20/17 08/20/17 History Tamsulosin HCl [Flomax] 0.4 mg PO DAILY 08/20/17 08/20/17 History Active Medications Generic Name Dose Route Start Last Admin Trade Name Freq PRN Reason Stop Dose Admin Amlodipine Besylate 2.5 mg 03/12/18 10:00 03/12/18 09:41 Norvasc - PO 2.5 mg DAILY ELVIN Administration Aspirin 81 mg 03/12/18 10:00 03/12/18 09:41 Asa - PO 81 mg DAILY ELVIN Administration Ezetimibe 10 mg 03/12/18 10:03/12/18 09:48 Zetia - PO 10 mg DAILY ELVIN Administration Heparin Sodium (Porcine) 5,000 unit 03/11/18 22:00 03/13/18 06:46 Heparin - SQ 5,000 unit TID ELVIN Administration Insulin Aspart 1 vial 03/11/18 22:00 03/13/18 06:48 Novolog Vial Sliding Scale - SQ Not Given ACHS [facility] Protocol Isosorbide Mononitrate 30 mg 03/12/18 10:00 03/12/18 09:41 Imdur - PO 30 mg DAILY ELVIN Administration Metoprolol Succinate 75 mg 03/12/18 10:00 03/12/18 09:41 Toprol Xl - PO 75 mg BID ELVIN Administration Tamsulosin HCl 0.4 mg 03/12/18 08:30 03/12/18 08:10 Flomax - PO 0.4 mg DAILY@0830 ELVIN Administration Valsartan 320 mg 03/12/18 10:00 03/12/18 09:41 Diovan - PO 320 mg DAILY ELVIN Administration Laboratory Results - last 24 hr 03/12/18 03/12/18 03/13/18 16:46 21:44 06:48 POC Glucometer 125 131 120 ASSESSMENT AND PLAN: 73 yom with CAD, ?Afib, bladder Ca, NIDDM, HLD, admitted with chest pressure/ dyspnea. -Chest pressure/dyspnea, r/o ACS. CTA neg for PE -Right scalp parietal hematoma s/p ?Fall -HTN -NIDDM -Hypertriglyceridemia -CAD s/p ?PCI -?Afib PLan: ACS ruled out, no events on tele. ASA 81 mg daily. Cardiology input appreciated. 2D echo noted, follow up stress echo (patient declines nuclear stress test). Hold nitrates/Beta kirby for stress. Continue Toprol, Lipid panel noted, ?intolerant to statins. Declined ezetimibe Hold metformin. ISS, diabetic diet. Continue ARB. Flomax. DVTPPx with heparin with close monitoring Dispo planning today pending stress echo, if no concerns. Plan discussed with patient in detail, all questions answered.
[2018-03-13] MEDS: amLODIPine BESYLATE 2.5 MG TABLET (FP) PO SCH (09:02)
[2018-03-13] MEDS: VALSARTAN 160 MG TABLET (UD) PO SCH (09:02)
[2018-03-13] MEDS: TAMSULOSIN HCL 0.4 MG CAP.ER.24H (FP) PO SCH (09:02)
--- NOTE | 2018-03-13 10:19 | PN ---
Progress Note, Physician Chief Complaint: sob, cp History of Present Illness: no more sob. denies nasal congestion on day of the PND episode. has had intermittent mild chest heaviness here (at rest)--states this exact sx has occurred off and on for many yrs, no change of late. denies relationship to mental stress/anxiety (or any of these sx's in fact) no palpit, syncope - Current Medication List Current Medications: Active Medications Amlodipine Besylate (Norvasc -) 2.5 mg PO DAILY [facility] Last Admin: 03/13/18 09:02 Dose: 2.5 mg Aspirin (Asa -) 81 mg PO DAILY [facility] Last Admin: 03/12/18 09:41 Dose: 81 mg Ezetimibe (Zetia -) 10 mg PO DAILY [facility] Last Admin: 03/12/18 09:48 Dose: 10 mg Heparin Sodium (Porcine) (Heparin -) 5,000 unit SQ TID [facility] Last Admin: 03/13/18 06:46 Dose: 5,000 unit Insulin Aspart (Novolog Vial Sliding Scale -) 1 vial SQ ACHS [facility] PRN Reason: Protocol Last Admin: 03/13/18 06:48 Dose: Not Given Isosorbide Mononitrate (Imdur -) 30 mg PO DAILY [facility] Last Admin: 03/12/18 09:41 Dose: 30 mg Metoprolol Succinate (Toprol Xl -) 75 mg PO BID [facility] Last Admin: 03/12/18 09:41 Dose: 75 mg Tamsulosin HCl (Flomax -) 0.4 mg PO DAILY@0830 [facility] Last Admin: 03/13/18 09:02 Dose: 0.4 mg Valsartan (Diovan -) 320 mg PO DAILY [facility] Last Admin: 03/13/18 09:02 Dose: 320 mg - Objective Vital Signs: Vital Signs Temperature 98.3 F 03/13/18 08:47 Pulse Rate 88 03/13/18 08:47 Respiratory Rate 18 03/13/18 09:00 Blood Pressure 161/75 03/13/18 08:47 O2 Sat by Pulse Oximetry (%) 96 03/13/18 09:00 Constitutional: Yes: Well Nourished, No Distress, Calm Cardiovascular: Yes: Regular Rate and Rhythm, S1, S2. No: Gallop, Murmur Respiratory: Yes: Regular, CTA Bilaterally. No: Accessory Muscle Use, Rales, Wheezes Extremities: No: Cold Edema: No Neurological: Yes: Alert, Oriented Psychiatric: No: Agitated Labs: CBC, BMP 03/12/18 06:36 03/12/18 06:36 INR, PTT INR 1.50 (0.82-1.09) H 03/12/18 06:36 Assessment/Plan CTA chest: no PE, no aorta aneurysm, clear lungs/pleura ECG: NSR; LVH; ? old AWMI; PVCs--no change vs prior MPI 2015 (pers): no STs. no ischemia. nl EF. Echo 2016: nl LV/EF. no RWMAs. nl RV. nl LA. valves WNL. Holter 2016: 28K PVCs, no VT tele: NSR, freq PVCs. no VT home meds: amlodipine 2.5, ASA 81, valsartan 160, fenofibrate 145, isosorbide mono 30, metopr 50 TID, metformin 500 bid, flomax cp, sob: -has had exertional fatigue/sob for many months, gradually progressive (no active back pain seems to be present to blame for this). -awoke with sob on DOA, with assctd chest heaviness that was mild. -BNP 198, exam without JVD or edema, CXR no congestion. -no ischemic ECG changes. trop neg x3 -chronic atypical cp sx with negative MPI in past--he states the present chest "heaviness" is same as chronic sx -? sob sec to transient CHF, ? unstable angina, ? stress/anxiety, ? WILMAR (not the typical habitus for this) -echo today -stress echo today (dobut)--pt declines nuclear sec to bladder cancer and radiation concerns (see prior note) -if failure to obtain close to target HR during stress test, pt will have to decide whether or not willing to have angiogram for definitive dx (ok to do as outpt, which he expresses would be his preference, given no hi risk clinical findings here) -hold metopr, nitrates until after test completed (low dose amlodipine ok--not likely to be anti-ischemic at this dose) CAD: -h/o [place] with PTCA then, no details available -no ischemia 2014 -he is intolerant to statins, decliend ezetimibe due to ins coverage. -has been on fenofibrate therapy long time, this has been continued -has been on ASA with episode of hematuria previously causing temporary discontinuation. pt was advised to resume ASA 08/16 per my d/w KATHIA (Miky Ignacio) -on BB at home, also for HTN and PVC suppression--dose incr'd to metopr succ 50 TID at last visit, but he has only taken it bid he says. -f/u stress tst HTN: -bp labile during past hospital stays and when in severe back pain -was well controlled (140s) at 08/16 o.v. 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 if he complied -incr metopr 75 bid, as above -check echo for LVEF (if declining, he will need amio vs mexilitene vs PVC ablation) HPL: -as above, statin intolerant. -low HDL, hi TGs--cont home fibrate -labs stable here, LDL 80s. -will start ezetimibe, ? if generic cost will be affordable on his plan now DM2 -A1c 7.3% in 2017, pt was to see dr gaming for mgmt coagulopathy: -INR 1.5 here. LFTs (incl albumin) normal -? heme eval inpatient or outpatient--per hospitalist/PMD should see me in 2-4 wks in office
[2018-03-13] MEDS ORDERED: DOBUTAMINE HCL 100,000 MCG in DEXTROSE 5%-WATER - 92 ML IVPB ONE (10:30)
--- NOTE | 2018-03-13 18:14 | PN ---
Physical Exam: SUBJECTIVE: Patient seen and examined at bedside. No acute events. Pt feels well. Refusing nuclear scans. Consents to echo stress. OBJECTIVE: Vital Signs Period Temp Pulse Resp BP Sys/Maharaj Pulse Ox Last 24 Hr 97.7 F-98.3 F 59-88 16-18 143-161/65-75 96-96 GENERAL: The patient is awake, alert, and fully oriented, in no acute distress. HEAD: Normal with no signs of trauma. EYES: sclera anicteric, conjunctiva clear. No ptosis. ENT: oropharynx clear without exudates, moist mucous membranes. NECK: Trachea midline, full range of motion, supple. LUNGS: Breath sounds equal, clear to auscultation bilaterally, no wheezes, no crackles, no accessory muscle use. HEART: Regular rate and rhythm, S1, S2 without murmur, rub or gallop. ABDOMEN: Soft, nontender, nondistended, normoactive bowel sounds, no guarding, no rebound, no hepatosplenomegaly, no masses. EXTREMITIES: 2+ pulses, warm, well-perfused, no edema. NEUROLOGICAL: Cranial nerves II through XII grossly intact. Normal speech, gait not observed. PSYCH: Normal mood, normal affect. SKIN: Warm, dry, normal turgor, no rashes or lesions noted Laboratory Results - last 24 hr 03/12/18 03/13/18 03/13/18 21:44 06:48 16:45 POC Glucometer 131 120 129 Active Medications Generic Name Dose Route Start Last Admin Trade Name Freq PRN Reason Stop Dose Admin Amlodipine Besylate 2.5 mg 03/12/18 10:00 03/13/18 09:02 Norvasc - PO 2.5 mg DAILY [facility] Administration Aspirin 81 mg 03/12/18 10:00 03/12/18 09:41 Asa - PO 81 mg DAILY [facility] Administration Ezetimibe 10 mg 03/12/18 10:00 03/12/18 09:48 Zetia - PO 10 mg DAILY [facility] Administration Heparin Sodium (Porcine) 5,000 unit 03/11/18 22:00 03/13/18 14:16 Heparin - SQ 5,000 unit TID [facility] Administration Insulin Aspart 1 vial 03/11/18 22:00 03/13/18 16:48 Novolog Vial Sliding Scale - SQ Not Given ACHS [facility] Protocol Isosorbide Mononitrate 30 mg 03/12/18 10:00 03/12/18 09:41 Imdur - PO 30 mg DAILY [facility] Administration Metoprolol Succinate 75 mg 03/12/18 10:00 03/12/18 09:41 Toprol Xl - PO 75 mg BID [facility] Administration Tamsulosin HCl 0.4 mg 03/12/18 08:30 03/13/18 09:02 Flomax - PO 0.4 mg DAILY@0830 [facility] Administration Valsartan 320 mg 03/12/18 10:00 03/13/18 09:02 Diovan - PO 320 mg DAILY [facility] Administration ASSESSMENT/PLAN: This is a pleasant 73 y/o M with PMH significant for arrhythmia and CAD who presented to the ED with complaint of chest and head pressure with SOB. Pt is admitted to tele/obs for evaluation and treatment of possible ACS. #ACS workup -ASA in ED -EKG signifcant for Q waves in V1, V2 (old) and TWI in V1, V2 (? new) -Trop neg x 2 -c/w home meds: ASA 81, toprol, valsartan, isosorbide, alfluzosin, norvasc, flomax -Metformin held in case pt will need CT with contrast -stress echo: hailey-septal dyskinesia. myocardial ischemia #INR -isolated INR of 1.5 -unclear etiology #DM -A1C -BGM ACHS -Novolog ISS -hold Metformin #? Afib -History of ventricular bigemini -No recorded AFib on EKG in records here -Pt not on anticoagulation at home #Bladder CA -completed 1 year BCG -now receiving q 3 mo #BPH -c/w Flomax #FEN -not on fluids -lytes wnl. Will give Mg to keep above 2 -cardiac diet #PPx -Hep Sub Q #Dispo -Obs Tele for ACS r/o Note: Meds reconciled with the patient. Simone Bonilla MD PGY-1 IM Visit type - Emergency Visit Emergency Visit: No - New Patient This patient is new to me today: No - Critical Care Critical Care patient: No - Discharge Referral Referred to [facility] Med P.C.: No
[2018-03-14] MEDS ORDERED: amLODIPine BESYLATE 2.5 MG TABLET (FP) PO ONE (02:53)
[2018-03-14] MEDS: HEPARIN NA (PORCINE) 5,000 UNITS/ML 1ML VIAL SQ SCH (05:57)
[2018-03-14] MEDS: INSULIN SLIDING SCALE (NOVOLOG) 1 VIAL SQ SCH ×2 (06:01→12:01)
[2018-03-14 08:07] LABS: BASO % 1.1 % (0-2.0); HEMATOCRIT 43.6 % (35.4-49); HEMOGLOBIN 14.8 GM/dL (11.7-16.9); MCH 30.5 pg (25.7-33.7); MEAN CELL VOLUME 89.5 fl (80-96); MONO % 10.6 % (3.8-10.2); NEUT % 51.3 % (42.8-82.8); PLATELET COUNT 233 K/MM3 (134-434); RBC 4.87 M/mm3 (4.00-5.60); RDW 13.5 % (11.9-15.9); WHITE BLOOD COUNT 8.8 K/mm3 (4.0-10.0)
[2018-03-14 08:33] LABS: ALK PHOS 61 U/L (45-117); ANION GAP 8 (8-16); BILIRUBIN,TOTAL 0.5 mg/dL (0.2-1.0); BLOOD UREA NITROGEN 14 mg/dL (7-18); CALCIUM 8.6 mg/dL (8.5-10.1); CHLORIDE 104 mmol/L (98-107); CO2 26 mmol/L (21-32); CREATININE 0.7 mg/dL (0.7-1.3); GLUCOSE,RANDOM 147 mg/dL (74-106); POTASSIUM 4.1 mmol/L (3.5-5.1); SGOT/AST 36 U/L (15-37); SGPT/ALT 49 U/L (12-78); SODIUM 138 mmol/L (136-145); TOT PROT 7.9 g/dl (6.4-8.2)
[2018-03-14] MEDS: ISOSORBIDE MONONITRATE 30 MG TAB.SR.24H (FP) PO SCH (09:03)
[2018-03-14] MEDS: TAMSULOSIN HCL 0.4 MG CAP.ER.24H (FP) PO SCH (09:03)
[2018-03-14] MEDS: VALSARTAN 160 MG TABLET (UD) PO SCH (09:03)
[2018-03-14] MEDS: EZETIMIBE 10 MG TABLET (FP) PO SCH (09:03)
[2018-03-14] MEDS: ASPIRIN 81 MG CHEWABLE TABLETS PO SCH (09:03)
[2018-03-14] MEDS: amLODIPine BESYLATE 2.5 MG TABLET (FP) PO SCH (09:04)
--- NOTE | 2018-03-14 10:31 | PN ---
Progress Note (short form) - Note Progress Note: Chief Complaint: sob, cp History of Present Illness: DRAFT yesterday had stress test and echo Imdur added this morning. toprol uptitrated last night to 75 bid. sbp's uncontrolled overnight. no more sob. no sx's during stress testing. no cp, palps, dizziness. Current Medications Amlodipine Besylate (Norvasc -) 2.5 mg PO DAILY [facility] Last Admin: 03/14/18 09:04 Dose: 2.5 mg Aspirin (Asa -) 81 mg PO DAILY [facility] Last Admin: 03/14/18 09:03 Dose: 81 mg Ezetimibe (Zetia -) 10 mg PO DAILY [facility] Last Admin: 03/14/18 09:03 Dose: 10 mg Heparin Sodium (Porcine) (Heparin -) 5,000 unit SQ TID [facility] Last Admin: 03/14/18 05:57 Dose: 5,000 unit Insulin Aspart (Novolog Vial Sliding Scale -) 1 vial SQ ACHS [facility] PRN Reason: Protocol Last Admin: 03/14/18 06:01 Dose: Not Given Isosorbide Mononitrate (Imdur -) 30 mg PO DAILY [facility] Last Admin: 03/14/18 09:03 Dose: 30 mg Metoprolol Succinate (Toprol Xl -) 75 mg PO BID [facility] Last Admin: 03/14/18 09:04 Dose: 75 mg Tamsulosin HCl (Flomax -) 0.4 mg PO DAILY@0830 [facility] Last Admin: 03/14/18 09:03 Dose: 0.4 mg Valsartan (Diovan -) 320 mg PO DAILY [facility] Last Admin: 03/14/18 09:03 Dose: 320 mg - Objective Vital Signs: Vital Signs - 24 hr 03/13/18 03/13/18 03/13/18 14:34 18:00 19:40 Temperature 97.7 F 98.0 F 97.7 F Pulse Rate 64 62 64 Respiratory 18 18 18 Rate Blood Pressure 159/67 156/77 152/68 O2 Sat by Pulse Oximetry (%) 03/13/18 03/14/18 03/14/18 21:00 02:00 02:35 Temperature 98.1 F Pulse Rate 62 57 L Respiratory 18 18 Rate Blood Pressure 179/82 186/92 O2 Sat by Pulse 97 Oximetry (%) 03/14/18 06:00 Temperature 97.9 F Pulse Rate 62 Respiratory 18 Rate Blood Pressure 152/78 O2 Sat by Pulse Oximetry (%) Constitutional: Yes: Well Nourished, No Distress, Calm Cardiovascular: Yes: Regular Rate and Rhythm, S1, S2. No: Gallop, Murmur jvd flat, neck supple Respiratory: Yes: Regular, CTA Bilaterally. No: Accessory Muscle Use, Rales, Wheezes Extremities: No: Cold. + dp/tp Edema: No Neurological: Yes: Alert, Oriented Psychiatric: No: Agitated no jaundice, diaphoresis. Labs: CBC, BMP 03/14/18 07:57 03/14/18 07:57 Laboratory Tests 03/11/18 03/11/18 03/12/18 12:00 18:15 00:05 Magnesium Total Bilirubin AST ALT Alkaline Phosphatase Troponin I < 0.02 < 0.02 < 0.02 Albumin Total LDL Cholesterol 03/12/18 03/14/18 06:36 07:57 Magnesium 2.2 Total Bilirubin 0.5 AST 36 D ALT 49 D Alkaline Phosphatase 61 D Troponin I Albumin 4.0 Total LDL Cholesterol 89 tele: NSR/sb, freq PVCs. freq trigeminy CTA chest: no PE, no aorta aneurysm, clear lungs/pleura ECG: NSR; LVH; ? old AWMI; PVCs--no change vs prior dobutamine stress echo 02/2018: resting htn. bline ekg sr with pvc's. target heart rate achieved. freq pvc's with stress. resting echo with 1+ conc lvh. nl lv fn. stress echo --> inducible anterior-septal dyskinesis. MPI 2015 (pers): no STs. no ischemia. nl EF. Echo 02/2018: nl lv /rv size/fn. 1+ mr/tr. rvsp 44. Echo 2016: nl LV/EF. no RWMAs. nl RV. nl LA. valves WNL. Holter 2016: 28K PVCs, no VT home meds: amlodipine 2.5, ASA 81, valsartan 160, fenofibrate 145, isosorbide mono 30, metopr 50 TID, metformin 500 bid, flomax Assessment/Plan 73 yo with PMHx of CAD s/p OH and PCTA 1990s, HTN, Hl, NIDDM, bladder ca cp, sob: -has had exertional fatigue/sob for many months, gradually progressive (no active back pain seems to be present to blame for this). - chronic atypical cp sx with negative MPI in past--he states the present chest "heaviness" is same as chronic sx -awoke with sob on DOA, with assctd chest heaviness that was mild. no ischemic ECG changes. trop neg x3 -? sob sec to transient CHF, ? unstable angina, ? stress/anxiety, ? WILMAR (not the typical habitus for this). BNP 198, exam without JVD or edema, CXR no congestion. -echo with mod phtn. otherwise no sig abnormalities. -s/p stress echo (dobut)--pt declines nuclear sec to bladder cancer and radiation concerns (see prior note) --> inducible ischemia - 03/14: anterior ischemia noted on stress echo. unclear the extent of myocardium involved, but per discussion with reading auto inspection specialist, wall motion abnormalities significant enough that he would recommend cardiac catheterization. Discussed with urologist and no contraindication to dapt. discussed with outpatient auto inspection specialist --> unclear if high risk ischemia. options for further evaluation include cardiac catheterization vs. repeating stress test with alternate imaging modality (nuclear) for risk stratification vs. medical management with the understanding that if he does indeed have a high risk obstruction --> increased risk of OH, arrhythmia, . Presented options/risk/benefits to patient and family. They would like to go home on medical management and move forward with cardiac catheterization electively as an outpatient. CAD: -h/o OH with PTCA then, no details available. no ischemia 2014 -he is intolerant to statins, currently on zetia. -has been on ASA with episode of hematuria previously causing temporary discontinuation. pt was advised to resume ASA 08/16 per my d/w KATHIA (Miky Ignacio) -- > also safe for dapt if needed. con't asa only for now. -on BB at home, also for HTN and PVC suppression--dose incr'd to here without inducing signficant bradycardia. (hr estrada in the 50's). no further anginal sx 's. -+ stress test --> plan for further eval with outpatient cath as mentioned above. HTN: -bp labile during past hospital stays and when in severe back pain -was well controlled (140s) at 10/17 o.v. -suboptimal BP here -change metopr to 75 BID for better chances at compliance. added imdur today . bp elevated overnight but improved today. Patient's family member is a nurse and is agreeable to monitoring bp at home. will notify cardiology office if sbp consistently > 140. can incr amlodipine if remains uncontrolled frequent PVCs, ventric bigeminy/trigeminy: -longstanding in this pt, refractory to metopr 50 BID--dose incr'd 08/16 ? if he complied -incr metopr 75 bid, as above. lytes wnl. -echo with nl systolic function. HPL: -as above, statin intolerant. -low HDL, hi TGs--on home fibrate -labs stable here, LDL 80s. - started ezetimibe here, ? if generic cost will be affordable on his plan now. fibrates stopped here, may need to resume as outpatient. DM2 -A1c 7.3% in 2017, pt was to see dr gaming for mgmt coagulopathy: -INR 1.5 here. LFTs (incl albumin) normal -? heme eval inpatient or outpatient--per hospitalist/PMD
[2018-03-14 10:37] VITALS: BP 130/76; PULSE 57; TEMP 97.7
--- NOTE | 2018-03-14 13:18 | DS ---
Physical Exam: SUBJECTIVE: Patient seen and examined at bedside. No acute events. Pt feels well. Pt seen by cardiology and consents to elective cath as an outpatient. OBJECTIVE: Vital Signs Period Temp Pulse Resp BP Sys/Maharaj Pulse Ox Last 24 Hr 97.7 F-98.1 F 57-64 18-18 130-186/67-92 97-97 PHYSICAL EXAM GENERAL: The patient is awake, alert, and fully oriented, in no acute distress. HEAD: Normal with no signs of trauma. EYES: extraocular movements intact, sclera anicteric, conjunctiva clear. ENT: oropharynx clear without exudates, moist mucous membranes. NECK: Trachea midline, full range of motion, supple. LUNGS: Breath sounds equal, clear to auscultation bilaterally, no wheezes, no crackles, no accessory muscle use. HEART: Regular rate and irregular rhythm, S1, S2 without murmur, rub or gallop. ABDOMEN: Soft, nontender, nondistended, normoactive bowel sounds, no guarding, no rebound, no hepatosplenomegaly, no masses. EXTREMITIES: 2+ pulses, warm, well-perfused, no edema. NEUROLOGICAL: Cranial nerves II through XII grossly intact. Normal speech, gait not observed. PSYCH: Normal mood, normal affect. SKIN: Warm, dry, normal turgor, no rashes or lesions noted. LABS Laboratory Results - last 24 hr 03/13/18 03/13/18 03/14/18 16:45 21:41 05:55 WBC RBC Hgb Hct MCV MCH MCHC RDW Plt Count MPV Neutrophils % Lymphocytes % Monocytes % Eosinophils % Basophils % Sodium Potassium Chloride Carbon Dioxide Anion Gap BUN Creatinine Creat Clearance w eGFR POC Glucometer 129 136 132 Random Glucose Calcium Total Bilirubin AST ALT Alkaline Phosphatase Total Protein Albumin 03/14/18 03/14/18 03/14/18 07:57 07:57 11:59 WBC 8.8 RBC 4.87 Hgb 14.8 Hct 43.6 MCV 89.5 MCH 30.5 MCHC 34.0 RDW 13.5 Plt Count 233 MPV 8.0 Neutrophils % 51.3 Lymphocytes % 33.0 Monocytes % 10.6 H Eosinophils % 4.0 Basophils % 1.1 Sodium 138 Potassium 4.1 Chloride 104 Carbon Dioxide 26 Anion Gap 8 BUN 14 Creatinine 0.7 Creat Clearance w eGFR > 60 POC Glucometer 121 Random Glucose 147 H D Calcium 8.6 Total Bilirubin 0.5 AST 36 D ALT 49 D Alkaline Phosphatase 61 D Total Protein 7.9 Albumin 4.0 HOSPITAL COURSE: Date of Admission:03/11/18 Date of Discharge: 03/14/18 This is a pleasant 73 y/o M with PMH significant for arrhythmia and CAD who presented to the ED with complaint of chest and head pressure with SOB. Pt is admitted to tele/obs for evaluation and treatment of possible ACS. Pt had an ACS workup done. EKG was significant for ventricular bigemini (old) and Q waves in V1, V2 (old) and TWI in V1, V2 (? new). However, troponins were consistently negative and his symptoms resolved completely. The patient had an echo, which was unremarkable. He was seen by cardiology, who ordered a stress echo, which was abnormal and suggestive of ischemia and anteroseptal dyskinesia.. His DM was managed inpt with ISS. His bladder CA was being treated as an outpt. His BPH was treated with Flomax. He is currently afebrile, not in distress, and stable for discharge. Pt was counselled extensively on the risks and benefits of delaying his procedure. He verbalized consent and elected to have the procedure done as an outpt. Minutes to complete discharge: 30 Discharge Summary Reason For Visit: CHEST PAIN Current Active Problems Chest pain (Acute) Condition: Stable - Instructions Diet, Activity, Other Instructions: You came to the hospital with chest pain and found to have an abnormal stress test. It was recommended that you go for immediate cardiac catheterization however after your conversation with cardiology you elected to have the procedure as outpatient. You need to follow up with your link trainer, Dr. Walsh. You will need to have a cardiac procedure to evaluate your heart and maybe provide a treatment, depending on what is found. You are being sent home with the following medications: Aspirin 81mg daily Valsartan 320 mg daily Flomax 0.4 mg daily Imdur 30 mg daily Norvasc 2.5 mg daily Metoprolol 75 mg twice daily Zetia 10 mg daily Alfluzosin 10mg daily Please do not take your Metformin for several days before your procedure. If you develop chest pain or shortness of breath return to the hospital immediately. Referrals: Pippa Walsh MD [Staff Physician] - 1 Week Shakir Coyne MD [Primary Care Provider] - 1 Week Disposition: HOME - Home Medications Comprehensive Discharge Medication List: Ambulatory Orders Aspirin [ASA -] 81 mg PO DAILY 06/13/15 Metoprolol Succinate [Toprol XL -] 50 mg PO DAILY #30 tab.sr.24h 06/18/15 Valsartan [Diovan] 320 mg PO DAILY #30 tablet 06/18/15 Isosorbide Mononitrate 30 mg PO DAILY 12/27/15 Alfuzosin HCl [Alfuzosin HCl ER] 10 mg PO DAILY 08/20/17 Amlodipine Besylate [Norvasc -] 2.5 mg PO DAILY 08/20/17 Metformin HCl [Glucophage] 500 mg PO DAILY 08/20/17 Tamsulosin HCl [Flomax] 0.4 mg PO DAILY 08/20/17 Ezetimibe [Zetia -] 10 mg PO DAILY #30 tablet 03/14/18 This patient is new to me today: No Emergency Visit: No Critical Care patient: No - Discharge Referral Referred to [facility] Med P.C.: No
--- NOTE | 2018-03-14 14:13 | PN ---
Teaching Attending Note Name of Resident: Simone Bonilla ATTENDING PHYSICIAN STATEMENT I saw and evaluated the patient. I reviewed the resident's note and discussed the case with the resident. I agree with the resident's findings and plan as documented. SUBJECTIVE:asymptomatic. denie Cp, SOB, fever, chills, N/V/C/D OBJECTIVE: Last Vital Signs Temp Pulse Resp BP Pulse Ox 97.7 F 57 L 18 130/76 97 03/14/18 10:00 03/14/18 10:00 03/14/18 10:00 03/14/18 10:03/14/18 09:00 General NAD ASSESSMENT AND PLAN: 73 yo M with CAD, ?Afib, bladder Ca, NIDDM, HLD, admitted with chest pressure/ dyspnea. 1. Chest pain- cardiac markers negative. Stress echo + ant septal dyskinesia. cardio had lengthy conversation with patient with family present. explained risks/benefits of immediate cath. pt refused. wants to go home and will come back for elective cath. stressed importance to pt with family present at bedside if symptoms return or develops SOB needs to come back to ER for emergent cath. refused to d/c on statin for fear of damage to liver. expressed his liver can be monitored and if develops can be stopped and likely not to have long lasting damage. pt refused. will d/c home spoke to patient in detail with family present
== END 2018-03-14 14:32 | disposition home or self-care (01) ==
LOC: JER 11:37 → JERBED 16:45 → J4W 21:18
PROVIDERS: ADMIT Hospitalist; ATTEND Internal Medicine
PROC: 3E033GC Introduction of Other Therapeutic Substance into Peripheral Vein, Percutaneous Approach (ICD-10-PCS; principal; 2018-03-11)
PROC: 3E013GC Introduction of Other Therapeutic Substance into Subcutaneous Tissue, Percutaneous Approach (ICD-10-PCS; 2018-03-11)
DX: R07.89 Other chest pain (principal); R06.00 Dyspnea, unspecified; S00.03XA Contusion of scalp, initial encounter; I10 Essential (primary) hypertension; I25.10 Atherosclerotic heart disease of native coronary artery without angina pectoris; I25.2 Old myocardial infarction; I49.3 Ventricular premature depolarization; E78.5 Hyperlipidemia, unspecified; E11.9 Type 2 diabetes mellitus without complications; N40.0 Benign prostatic hyperplasia without lower urinary tract symptoms; D68.9 Coagulation defect, unspecified; C67.9 Malignant neoplasm of bladder, unspecified; Z92.21 Personal history of antineoplastic chemotherapy; Z91.19 Patient's noncompliance with other medical treatment and regimen; Z95.5 Presence of coronary angioplasty implant and graft; Z79.82 Long term (current) use of aspirin; Z79.84 Long term (current) use of oral hypoglycemic drugs; X58.XXXA Exposure to other specified factors, initial encounter; Y93.9 Activity, unspecified; Y92.9 Unspecified place or not applicable
CPT/HCPCS: 36415; 70450-TC; 71045-TC-FY; 71275-TC; 80053; 80061; 82550; 82962; 83036; 83721; 83735; 83880; 84100; 84484; 85025; 85610; 85730; 93005; 93010; 93306-TC; 93351; 96365; 96366; 96372; 99284-25; G0378; J1644